=== PATIENT | female | born 1955 | race Caucasian/White ===

== ENCOUNTER 2018-06-19 16:32 | Emergency (ER) | payer MEDICAID ==
[~2018-06-19] VITALS: Ht 165.1 cm; Wt 89.8 kg
[2018-06-19 17:07] VITALS: BP 181/83
[2018-06-19] MEDS ORDERED: IBUPROFEN 800 MG TAB PO ONE (17:30)
== END 2018-06-19 18:03 | disposition home or self-care (01) ==
LOC: ER 16:32
DX: S91.302D Unspecified open wound, left foot, subsequent encounter (principal); E78.5 Hyperlipidemia, unspecified; I10 Essential (primary) hypertension; Z48.01 Encounter for change or removal of surgical wound dressing; X58.XXXD Exposure to other specified factors, subsequent encounter